=== PATIENT | male | born 1995 | race Caucasian/White ===

== ENCOUNTER 2020-08-24 16:25 | Emergency (ER) | payer OTHER ==
[~2020-08-24] VITALS: Ht 177.8 cm; Wt 104.4 kg
[2020-08-24] MEDS ORDERED: SODIUM CHLORIDE 0.9% 1,000ML IVBOLUS ONE (17:00)
[2020-08-24] MEDS ORDERED: ONDANSETRON 2MG/ML, 2ML IVPush ONE (17:00)
[2020-08-24] MEDS ORDERED: ONDANSETRON 2MG/ML, 2ML ONE (17:06)
[2020-08-24] MEDS ORDERED: MORPHINE SULFATE 4 MG/ML, 1ML ONE ×2 (17:07→17:25)
[2020-08-24] MEDS: MORPHINE SULFATE 4 MG/ML, 1ML IVPush PRN ×2 (17:14→17:27)
--- NOTE | 2020-08-24 17:17 | NUR ---
PIV PLACED, LABS DRAWN. MEDS ADMIN PER MAY, IVF RUNNING. PT CONNECTED TO MONITORING. CALL LIGHT IN REACH.
--- NOTE | 2020-08-24 17:20 | NUR ---
PT ATTEMPTED TO PROVIDE URINE SAMPLE WITHOUT SUCCESS. PT URINATED CULINARY SPECIALIST.
[2020-08-24 17:44] LABS: BASOPHILS % (AUTO) 0 % (0-1); EOSINOPHILS % (AUTO) 3 % (1-7); LYMPHOCYTES % (AUTO) 23 % (22-44); MEAN CORPUSCULAR HEMOGLOBIN 30.5 pg (27.5-34.5); MEAN CORPUSCULAR HGB CONC 35.3 g/dL (33.2-36.2); MEAN PLATELET VOLUME 9.2 fL (7.4-10.4); MONOCYTES % (AUTO) 6 % (2-9); NEUTROPHILS % (AUTO) 68 % (42-75); PLATELET COUNT 289 x10^3/uL (130-400); RED BLOOD COUNT 4.95 x10^6/uL (4.38-5.82); RED CELL DISTRIBUTION WIDTH 12.5 % (9.4-14.8)
[2020-08-24 17:50] LABS: ALBUMIN 4.8 g/dL (3.4-5.0); ANION GAP 11 mmol/L (5-15); CALCIUM 9.3 mg/dL (8.5-10.1); CHLORIDE 103 mmol/L (98-107); CREATININE 1.29 mg/dL (0.7-1.3)
[2020-08-24] MEDS ORDERED: KETOROLAC 30 MG/1 ML ONE (18:14)
--- NOTE | 2020-08-24 18:27 | NUR ---
PT ATTEMPTED TO PROVIDE URINE SAMPLE WITHOUT SUCCESS. IVF RUNNING FASTER NOW, WAS SLUGGISH BEFORE.
[2020-08-24] MEDS ORDERED: KETOROLAC 30 MG/1 ML IVPush ONE (18:30)
--- NOTE | 2020-08-24 18:57 | NUR ---
IVF COMPLETED. PT STATES PAIN IS BETTER. PT ATTEMPTING TO PROVIDE URINE SAMPLE.
--- NOTE | 2020-08-24 19:19 | NUR ---
PT PROVIDED URINE SAMPLE. UA COLLECTED AND TAKEN TO LAB. ERMD AT BEDSIDE TO UPDATE PT ON POC.
[2020-08-24 19:25] LABS: MICROSCOPIC INDICATED
--- NOTE | 2020-08-24 19:40 | NUR ---
ALL RESULTS ARE BACK AT THIS TIME. CHART UP FOR RECHECK.
[2020-08-24 19:41] VITALS: BP 120/76
== END 2020-08-24 20:26 | disposition home or self-care (01) ==
LOC: ED 20:00
DX: N13.2 Hydronephrosis with renal and ureteral calculous obstruction (principal); R31.9 Hematuria, unspecified
CPT/HCPCS: 36415; 74176; 80048; 81001; 82040; 85025; 96361; 96374; 96375; 99284; J1885; J2270; J2405; J7030